=== PATIENT | female | born 1955 | race Two or more races ===

== ENCOUNTER → 2021-04-22 | Outpatient (CLI) | payer MEDICARE ==
--- NOTE | 2021-04-22 13:16 | XR ---
EXAMINATION TYPE: XR cervical spine comp DATE OF EXAM: 04/22/2021 TECHNIQUE: Frontal, lateral, oblique, and open mouth view of the cervical spine are obtained. HISTORY: M54.12 cervical radiculopathy neck pain causing pain and numbness down left arm for a few weeks. COMPARISON: None FINDINGS: The cervical spine is visualized in its entirety from C1 thru the top of T1 level, it is s traightened in alignment without evidence of acute fracture or dislocation. The pre-vertebral soft t issue appears within normal limits. The C1-C2 articulation show satisfactory lateral articulation li mits on multiple open mouth view attempts. The top of dens not well identified. Vertebral body height s are maintained. The oblique images are within normal limits. Moderate disc space narrowing with mil d to moderate anterior spurring C5-C6 level. Mild to moderate anterior spurring with osteophytic ante rior projection or fragment C6-C7 level. The oblique images show neural foraminal narrowing of bilate ral C4-C5 and C5-C6 levels due to marginal osteophytes. Overlying soft tissue shows clothing material . Visualized upper lungs are clear. IMPRESSION: As above.
== END | disposition home or self-care (01) ==
LOC: RADXRMAIN 12:10
PROVIDERS: ATTEND Family Medicine
DX: M48.02 Spinal stenosis, cervical region (principal); M25.78 Osteophyte, vertebrae; M54.12 Radiculopathy, cervical region; M99.71 Connective tissue and disc stenosis of intervertebral foramina of cervical region
CPT/HCPCS: 72050

== ENCOUNTER 2021-09-08 11:28 | Day surgery (SDC) | payer MEDICARE ==
[2021-09-03 16:11] VITALS: BMI 28.3
[~2021-09-08 11:28] MED LIST: LACTATED RINGERS 1,000 ML IV SCH
[2021-09-08 11:54] VITALS: RESP 16; TEMP 97.6
[2021-09-08] MEDS ORDERED: PROPOFOL 10 MG/ML 20 ML VIAL IV ONE (13:03)
[2021-09-08] MEDS ORDERED: LIDOCAINE 1% INJ 10MG/ML (20 ML MDV) ONE (13:03)
--- NOTE | 2021-09-08 13:12 | P.GSHP ---
History of Present Illness H&P Date: 09/08/21 Chief Complaint: GERD, Dee's esophagus, screening Patient here today for upper and lower endoscopy. Last colonoscopy greater than 10 years ago. Last EGD approximately 5 years ago. History of Dee's esophagus. Mild reflux however patient takes Prilosec daily and symptoms are fairly well controlled. No family history of GI malignancy. Past Medical History Past Medical History: GERD/Reflux Additional Past Medical History / Comment(s): BARRETTS'S ESOPHAGUS History of Any Multi-Drug Resistant Organisms: None Reported Past Surgical History: Bladder Surgery, Tonsillectomy Additional Past Surgical History / Comment(s): COLONOSCOPY/EGD Past Anesthesia/Blood Transfusion Reactions: No Reported Reaction Smoking Status: Former smoker - Past Family History Mother History Unknown: Yes Family Medical History: Unable to Obtain Additional Family Medical History / Comment(s): PT ADOPTED. FAMILY HX UNKNOWN Medications and Allergies Home Medications Medication Instructions Recorded Confirmed Type Omeprazole [PriLOSEC] 40 mg PO DAILY 09/03/21 09/03/21 History Allergies Allergy/AdvReac Type Severity Reaction Status Date / Time metronidazole [From Flagyl] Allergy Anaphylaxis Verified 09/08/21 11:55 Surgical - Exam Vital Signs Temp Pulse Resp BP Pulse Ox 97.6 F 95 16 161/68 100 09/08/21 11:52 09/08/21 11:52 09/08/21 11:52 09/08/21 11:52 09/08/21 11:52 Physical exam: General: Well-developed, well-nourished HEENT: Normocephalic, sclerae nonicteric Abdomen: Nontender, nondistended Extremities: No edema Neuro: Alert and oriented Assessment and Plan (1) GERD (gastroesophageal reflux disease) Narrative/Plan: Will proceed with upper and lower endoscopy Current Visit: Yes Status: Acute Code(s): K21.9 - GASTRO-ESOPHAGEAL REFLUX DISEASE WITHOUT ESOPHAGITIS SNOMED Code(s): 183729345
--- NOTE | 2021-09-08 13:28 | P.PCN ---
Date of Procedure: 09/08/21 Procedure(s) Performed: PREOPERATIVE DIAGNOSIS: GERD, Dee's esophagus, colon cancer screening POSTOPERATIVE DIAGNOSIS: Minimal gastritis, small hiatal hernia, short segment Dee's esophagus, small sigmoid polyp PROCEDURE: 1. EGD with biopsy 2. Colonoscopy with biopsy ANESTHESIA: [facility] [place] SURGEON: Rober Paz M.D. SPECIMENS: Antrum, Dee's ENDOSCOPIC PROCEDURE: The patient was on the endoscopy table in the left decubitus position. The Olympus gastroscope was inserted into the oropharynx and passed under direct visualization to the region of the third portion of the duodenum. From that point the scope was slowly withdrawn inspecting all surfaces carefully. There were no neoplastic inflammatory or polypoid lesions throughout the duodenum. The pylorus was widely patent. The stomach was carefully inspected. There was minimal gastritis present. A biopsy of the antrum took place to rule out H. pylori. Retroflexion revealed a small sliding hiatal hernia. The GE junction was present 1 cm above the diaphragm. The patient had an approximately 1 cm length of Dee's esophagus. No inflammatory changes were seen. Biopsies of the Dee's esophagus took place circumferentially. The remainder the esophagus appear normal. The patient was kept on the endoscopy table in the left decubitus position. The Olympus colonoscope was inserted into the anus and passed under direct visualization to the base of the cecum. The appendiceal orifice was visualized. From that point the scope was slowly withdrawn inspecting all surfaces carefully. There were no neoplastic inflammatory or polypoid lesions throughout the cecum, ascending, transverse, and descending colon. In the sigmoid colon a small polyp was seen and removed using the cold biopsy forceps. The remainder of the sigmoid and rectum appeared normal. There was no visible diverticula. Digital rectal examination was normal. The patient was taken to the recovery room in stable condition per anesthesia guidelines. RECOMMENDATIONS: Await biopsy results. Will contact patient with timing of next EGD and colonoscopy.
[2021-09-08 13:48] VITALS: BP 124/81; PULSE 76
== END 2021-09-08 14:10 | disposition home or self-care (01) ==
LOC: ORWHC2ENDO 11:28
PROVIDERS: ATTEND Surgery
DX: Z12.11 Encounter for screening for malignant neoplasm of colon (principal); D12.5 Benign neoplasm of sigmoid colon; K44.9 Diaphragmatic hernia without obstruction or gangrene; K29.70 Gastritis, unspecified, without bleeding; K31.9 Disease of stomach and duodenum, unspecified; K22.70 Barrett's esophagus without dysplasia; K21.9 Gastro-esophageal reflux disease without esophagitis; Z98.890 Other specified postprocedural states; Z87.891 Personal history of nicotine dependence; Z79.899 Other long term (current) drug therapy; Z88.1 Allergy status to other antibiotic agents
CPT/HCPCS: 88305; 45380; 43239; J2001; J2704

== ENCOUNTER 2022-01-12 18:24 | Emergency (ER) | payer MEDICARE ==
[2022-01-12 19:40] VITALS: TEMP 99.2
[2022-01-12 20:54] LABS: ALT 24 U/L (4-34); AST 28 U/L (14-36); African American GFR (CKD) >90 (>60 ml/min/1.73 sqM); Albumin 4.2 g/dL (3.5-5.0); Alkaline Phosphatase 108 U/L (38-126); Anion Gap 10 mmol/L; Blood Urea Nitrogen 15 mg/dL (7-17); Calcium 9.4 mg/dL (8.4-10.2); Carbon Dioxide 26 mmol/L (22-30); Chloride 104 mmol/L (98-107); Glucose 118 mg/dL (74-99); Non-African American GFR(CKD) >90 (>60 ml/min/1.73 sqM); Potassium 4.8 mmol/L (3.5-5.1); Sodium 140 mmol/L (137-145); Total Bilirubin 0.4 mg/dL (0.2-1.3); Total Protein 7.2 g/dL (6.3-8.2)
[2022-01-12 20:59] LABS: Prothrombin Time 11.1 sec (9.0-12.0)
[2022-01-12 21:10] LABS: Basophils # (A) 0.1 k/uL (0-0.2); Basophils % (A) 1 %; Eosinophils # (A) 0.1 k/uL (0-0.7); Eosinophils % (A) 2 %; HCT 43.9 % (34.0-46.0); HGB 14.5 gm/dL (11.4-16.0); Lymphocytes # (A) 2.5 k/uL (1.0-4.8); Lymphocytes % (A) 31 %; MCH 32.6 pg (25.0-35.0); MCV 98.8 fL (80.0-100.0); Mean Platelet Volume 7.5; Monocytes # (A) 0.4 k/uL (0-1.0); Monocytes % (A) 5 %; Neutrophils % (A) 61 %; Platelet Count 414 k/uL (150-450); RBC 4.44 m/uL (3.80-5.40); RDW 12.8 % (11.5-15.5); WBC 8.2 k/uL (3.8-10.6)
--- NOTE | 2022-01-12 22:51 | ED ---
Dizziness HPI - General Chief Complaint: Dizziness Stated Complaint: Pulse High Time Seen by Provider: 01/12/22 22:18 Source: patient Mode of arrival: ambulatory Limitations: no limitations - History of Present Illness Initial Comments: Patient is a 66-year-old female who presents to the emergency department with chief complaint of dizziness. Patient reports that she started to feel palpitations this afternoon at her home and took her pulse which was 140. She began to feel dizzy as if she was unsteady on her feet. Patient does have a history of SVT but reports she only had episodes during menopause and has not had issues since. Currently, patient denies palpitations but does feel dizzy when she turns her head. She reports that she does not feel like the room is spinning but instead feels "woozy". Patient states she is mildly nauseous. She has no other concerns at this time including fever, chills, diaphoresis, jaw or bilateral arm pain/tingling, shortness of breath, chest pain, vomiting, and diarrhea. She denies a history of coronary artery disease, hypertension, hyperlipidemia, and smoking. She denies a family history of cardiac disease although she is unsure about her father's history due to being adopted. - Related Data Home Medications Medication Instructions Recorded Confirmed Omeprazole [PriLOSEC] 40 mg PO DAILY 09/03/21 09/03/21 Previous Rx's Medication Instructions Recorded Meclizine [Antivert] 25 mg PO BID PRN 7 Days #14 tab 01/12/22 Allergies Allergy/AdvReac Type Severity Reaction Status Date / Time metronidazole [From Flagyl] Allergy Anaphylaxis Verified 01/12/22 19:40 Review of Systems ROS Statement: Those systems with pertinent positive or pertinent negative responses have been documented in the HPI. ROS Other: All systems not noted in ROS Statement are negative. Past Medical History Past Medical History: GERD/Reflux, Supraventricular Tachycardia (SVT) Additional Past Medical History / Comment(s): BARRETTS'S ESOPHAGUS, VERTIGO History of Any Multi-Drug Resistant Organisms: None Reported Past Surgical History: Bladder Surgery, Tonsillectomy Additional Past Surgical History / Comment(s): COLONOSCOPY/EGD Past Anesthesia/Blood Transfusion Reactions: No Reported Reaction Past Psychological History: No Psychological Hx Reported Smoking Status: Former smoker Past Alcohol Use History: Occasional Past Drug Use History: None Reported - Past Family History Mother History Unknown: Yes Family Medical History: Unable to Obtain Additional Family Medical History / Comment(s): PT ADOPTED. FAMILY HX UNKNOWN General Exam Limitations: no limitations General appearance: alert, in no apparent distress Head exam: Present: atraumatic, normocephalic, normal inspection ENT exam: Present: normal exam, mucous membranes moist Respiratory exam: Present: normal lung sounds bilaterally. Absent: respiratory distress, wheezes, rales, rhonchi, stridor Cardiovascular Exam: Present: regular rate, normal rhythm, normal heart sounds. Absent: systolic murmur, diastolic murmur, rubs, gallop, clicks GI/Abdominal exam: Present: soft, normal bowel sounds. Absent: distended, tende rness, guarding, rebound, rigid Neurological exam: Present: alert, oriented X3, CN II-XII intact Psychiatric exam: Present: normal affect, normal mood Skin exam: Present: warm, dry, intact, normal color. 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 Sinus rhythm, possible left atrial enlargement. ventricular rate 90. TN interval 161. QRS duration 87. QTC 388 Medical Decision Making - Medical Decision Making This is a 66-year-old female who presents with dizziness that started today. Thorough history and examination were performed. Patient is hemodynamically stable with blood pressure at 155/73. Pulse is 112. EKG reveals sinus rhythm. Laboratory studies are unremarkable. Initial troponin is within normal limits. Repeat pulse is 86. Patient has a heart score of 2 due to age. Results discussed with patient and patient's . Risk of adverse cardiac outcome in the next 6 weeks is low. Patient is comfortable going home with primary care or cardiology follow-up. She will be discharged with referral to a street sprinkler. Patient was also prescribed meclizine to trial until further evaluation. Fall risk education was provided. Patient was understanding and are agreeable to plan. Dr. Jefferson is my attending. - Lab Data Result diagrams: 01/12/22 20:28 01/12/22 20:28 Lab Results 01/12/22 01/12/22 01/12/22 Range/Units 20:28 20:28 20:28 WBC 8.2 (3.8-10.6) k/uL RBC 4.44 (3.80-5.40) m/uL Hgb 14.5 (11.4-16.0) gm/dL Hct 43.9 (34.0-46.0) % MCV 98.8 (80.0-100.0) fL MCH 32.6 (25.0-35.0) pg MCHC 33.0 (31.0-37.0) g/dL RDW 12.8 (11.5-15.5) % Plt Count 414 (150-450) k/uL MPV 7.5 Neutrophils % 61 % Lymphocytes % 31 % Monocytes % 5 % Eosinophils % 2 % Basophils % 1 % Neutrophils # 5.0 (1.3-7.7) k/uL Lymphocytes # 2.5 (1.0-4.8) k/uL Monocytes # 0.4 (0-1.0) k/uL Eosinophils # 0.1 (0-0.7) k/uL Basophils # 0.1 (0-0.2) k/uL PT 11.1 (9.0-12.0) sec INR 1.0 (<1.2) Sodium 140 (137-145) mmol/L Potassium 4.8 (3.5-5.1) mmol/L Chloride 104 (98-107) mmol/L Carbon Dioxide 26 (22-30) mmol/L Anion Gap 10 mmol/L BUN 15 (7-17) mg/dL Creatinine 0.67 (0.52-1.04) mg/dL Est GFR (CKD-EPI)AfAm >90 (>60 ml/min/1.73 sqM) Est GFR (CKD-EPI)NonAf >90 (>60 ml/min/1.73 sqM) Glucose 118 H (74-99) mg/dL Calcium 9.4 (8.4-10.2) mg/dL Total Bilirubin 0.4 (0.2-1.3) mg/dL AST 28 (14-36) U/L ALT 24 (4-34) U/L Alkaline Phosphatase 108 (38-126) U/L Troponin I (0.000-0.034) ng/mL Total Protein 7.2 (6.3-8.2) g/dL Albumin 4.2 (3.5-5.0) g/dL 01/12/22 Range/Units 20:28 WBC (3.8-10.6) k/uL RBC (3.80-5.40) m/uL Hgb (11.4-16.0) gm/dL Hct (34.0-46.0) % MCV (80.0-100.0) fL MCH (25.0-35.0) pg MCHC (31.0-37.0) g/dL RDW (11.5-15.5) % Plt Count (150-450) k/uL MPV Neutrophils % % Lymphocytes % % Monocytes % % Eosinophils % % Basophils % % Neutrophils # (1.3-7.7) k/uL Lymphocytes # (1.0-4.8) k/uL Monocytes # (0-1.0) k/uL Eosinophils # (0-0.7) k/uL Basophils # (0-0.2) k/uL PT (9.0-12.0) sec INR (<1.2) Sodium (137-145) mmol/L Potassium (3.5-5.1) mmol/L Chloride (98-107) mmol/L Carbon Dioxide (22-30) mmol/L Anion Gap mmol/L BUN (7-17) mg/dL Creatinine (0.52-1.04) mg/dL Est GFR (CKD-EPI)AfAm (>60 ml/min/1.73 sqM) Est GFR (CKD-EPI)NonAf (>60 ml/min/1.73 sqM) Glucose (74-99) mg/dL Calcium (8.4-10.2) mg/dL Total Bilirubin (0.2-1.3) mg/dL AST (14-36) U/L ALT (4-34) U/L Alkaline Phosphatase (38-126) U/L Troponin I <0.012 (0.000-0.034) ng/mL Total Protein (6.3-8.2) g/dL Albumin (3.5-5.0) g/dL Disposition Clinical Impression: Dizziness of unknown etiology, Tachycardia Disposition: HOME SELF-CARE Condition: Good Additional Instructions: You are a fall risk when you feel dizzy/unsteady. Please make sure to sit or lay down when he started to feel dizzy and use assistance if you need to stand up. Take medication as prescribed. Follow-up with primary care provider or street sprinkler for further evaluation and management of your symptoms. Return to the emergency department if you experience new, concerning, or worsening symptoms. Prescriptions: Meclizine [Antivert] 25 mg PO BID PRN 7 Days #14 tab PRN Reason: Vertigo Is patient prescribed a controlled substance at d/c from ED?: No Referrals: Marva Mark DO [Primary Care Provider] - 1-2 days Raudel Shah MD [STAFF PHYSICIAN] - 1-2 days Time of Disposition: 22:49
[2022-01-12 22:57] VITALS: PULSE 86
[2022-01-12 23:04] VITALS: BP 142/80; RESP 18
== END 2022-01-12 23:23 | disposition home or self-care (01) ==
LOC: EC 18:24
DX: K21.9 Gastro-esophageal reflux disease without esophagitis (principal); Z79.890 Hormone replacement therapy; Z87.891 Personal history of nicotine dependence; Z88.1 Allergy status to other antibiotic agents
CPT/HCPCS: 36415; 80053; 84484; 85025; 85610; 93005; 99285

== ENCOUNTER → 2022-01-20 | Outpatient (CLI) | payer MEDICARE ==
--- NOTE | 2022-01-20 11:45 | P.STRESS ---
- Stress Test Note Stress Test Results/Findings: Exam Performed: NM stress cardiolite complete Exam Date: 01/20/22 Reason for Exam: PALPITATIONS Height: 5 ft 4 in Weight: 79.379 kg Protocol: CARDIOLITE BLAIR Stage: 3 Duration of Exercise: 7:30 Resting Heart Rate: 71 Resting Blood Pressure: 130/74 Maximum Achieved Heart Rate: 169 Maximum Achieved Blood Pressure: 189.82 85% PMHR: 129 100% PMHR: 152 METS: 9.5 Technologist Comment: Stress Test Results/Findings: Exercise Cardiolite stress test Baseline heart rate 71 beats a minute, Baseline blood pressure 130 was 74 mmHg Baseline 12-lead EKG showed sinus rhythm normal TN narrow QRS normal ST segments One ventricular triplet noted prior to starting exercise Patient exercised on a Blair protocol for 7 minutes achieving a peak heart rate of 169 beats a minute The blood pressure 188/80 mmHg There was no ECG is for ischemia No ECG is for ischemia, no exercise-induced arrhythmias noted Nuclear report is separate
--- NOTE | 2022-01-20 12:22 | NM ---
EXAMINATION TYPE: NM stress cardiolite complete DATE OF EXAM: 01/20/2022 COMPARISON: NONE HISTORY: R00.2 palpitations TECHNIQUE: After the intravenous administration of 9.4 mCi Tc 99m Sestamibi - Rest images obtained 6 0 minutes post injection. The patient exercised using a BLAIR protocol and 1 minute prior to peak e xercise was injected with 25.3 mCi Tc 99m Sestamibi - Stress images obtained 28 minutes post injectio n. FINDINGS: Targeted heart rate was achieved during performance of the study. Review of stress and rest SPECT eliane ges demonstrates no distinct perfusion abnormality. Gated analysis shows normal wall motion with an estimated left ventricular ejection fraction of 69 %. IMPRESSION: No scintigraphic evidence for reversible ischemia
--- NOTE | 2022-01-21 10:07 | EST ---
Stress Test Results/Findings: Exam Performed: NM stress cardiolite complete Exam Date: 01/20/22 Reason for Exam: PALPITATIONS Height: 5 ft 4 in Weight: 79.379 kg Protocol: CARDIOLITE BLAIR Stage: 3 Duration of Exercise: 7:30 Resting Heart Rate: 71 Resting Blood Pressure: 130/74 Maximum Achieved Heart Rate: 169 Maximum Achieved Blood Pressure: 189.82 85% PMHR: 129 100% PMHR: 152 METS: 9.5 Technologist Comment: Stress Test Results/Findings: Exercise Cardiolite stress test Baseline heart rate 71 beats a minute, Baseline blood pressure 130 was 74 mmHg Baseline 12-lead EKG showed sinus rhythm normal AL narrow QRS normal ST segments One ventricular triplet noted prior to starting exercise Patient exercised on a Blair protocol for 7 minutes achieving a peak heart rate of 169 beats a minute The blood pressure 188/80 mmHg There was no ECG is for ischemia No ECG is for ischemia, no exercise-induced arrhythmias noted Nuclear report is separate MTDD
== END | disposition home or self-care (01) ==
LOC: RADNMMAIN 08:30
PROVIDERS: ATTEND Family Medicine
DX: R42 Dizziness and giddiness (principal); R68.84 Jaw pain; R11.0 Nausea; I47.1 Supraventricular tachycardia; R00.2 Palpitations
CPT/HCPCS: 93017; 78452; A9500

== ENCOUNTER → 2022-03-01 | Outpatient (CLI) | payer MEDICARE ==
--- NOTE | 2022-03-01 22:49 | MR ---
EXAMINATION TYPE: MR iac wo/w con DATE OF EXAM: 03/01/2022 COMPARISON: NONE HISTORY: Bilateral hearing loss, vertigo. TECHNIQUE: Multiplanar, multisequence images of the brain and brainstem is performed without and with IV contras t, utilizing 8 mL intravenous Gadavist . Acoustic nerve disorder protocol. FINDINGS: Diffusion weighted images demonstrate no evidence of a recent infarct or other diffusion ab normality. The ventricular system and cisternal spaces are normal in size and appearance. The brain volume is age appropriate. Occasional scattered tiny focus of T2 hyperintensity seen throughout the white matter bilaterally. Roughly 10 scattered lesions are seen. Largest measures 12 x 6 mm deep righ t parietal level axial image 19. Midline structures demonstrate normal morphology. The craniocervical junction appears within normal limits. Normal vascular flow voids are present. The visualized sinuses are clear and the globes are i ntact. No suspicious fluid signal in the mastoid air cells bilaterally. The vestibulocochlear complexes are symmetric and felt within normal limits. No suspicious enhancing cerebellopontine angle mass is noted bilaterally. IMPRESSION: No significant finding seen to account for patient's symptoms of bilateral hearing loss a nd vertigo. Mild nonspecific white matter changes favor product of chronic small vessel ischemic m[place] ge in patient of this age.
== END | disposition home or self-care (01) ==
LOC: RADMRIMAIN 14:10
PROVIDERS: ATTEND Otolaryngology
DX: H91.90 Unspecified hearing loss, unspecified ear (principal)
CPT/HCPCS: 70553; A9585

== ENCOUNTER 2024-03-15 21:38 | Observation (INO) | payer MEDICARE ==
--- NOTE | 2024-03-15 22:17 | ED ---
Recheck HPI - General Chief Complaint: Chest Pain Stated Complaint: Cardiac infusion Time Seen by Provider: 03/15/24 21:39 Source: patient, EMS, RN notes reviewed, old records reviewed Mode of arrival: EMS Limitations: no limitations - History of Present Illness Initial Comments: This is a 68-year-old female to the ER as a reevaluation patient as a transfer from an outside facility for a pericardial effusion initially presented with tachycardia and dizziness with near syncopal feelings. Patient currently feels well heart rate is improved and will be admitted for cardiology to see MD Complaint: abnormal lab (Patient had pericardial effusion on ultrasound) -: unknown Symptoms Since Prior Visit: no new symptoms Associated Symptoms: none - Related Data Home Medications Medication Instructions Recorded Confirmed Omeprazole [PriLOSEC] 40 mg PO DAILY 09/03/21 09/03/21 Previous Rx's Medication Instructions Recorded Meclizine [Antivert] 25 mg PO BID PRN 7 Days #14 tab 01/12/22 Allergies Allergy/AdvReac Type Severity Reaction Status Date / Time metronidazole [From Flagyl] Allergy Anaphylaxis Verified 03/15/24 21:45 Review of Systems ROS Statement: Those systems with pertinent positive or pertinent negative responses have been documented in the HPI. ROS Other: All systems not noted in ROS Statement are negative. Past Medical History Past Medical History: GERD/Reflux, Supraventricular Tachycardia (SVT) Additional Past Medical History / Comment(s): BARRETTS'S ESOPHAGUS, VERTIGO History of Any Multi-Drug Resistant Organisms: None Reported Past Surgical History: Bladder Surgery, Tonsillectomy Additional Past Surgical History / Comment(s): COLONOSCOPY/EGD Past Anesthesia/Blood Transfusion Reactions: No Reported Reaction Past Psychological History: No Psychological Hx Reported Smoking Status: Former smoker Past Alcohol Use History: Occasional Past Drug Use History: None Reported - Past Family History Mother History Unknown: Yes Family Medical History: Unable to Obtain Additional Family Medical History / Comment(s): PT ADOPTED. FAMILY HX UNKNOWN General Exam Limitations: no limitations General appearance: alert, in no apparent distress Head exam: Present: atraumatic, normocephalic, normal inspection Eye exam: Present: normal appearance, PERRL, EOMI. Absent: scleral icterus, conjunctival injection, periorbital swelling ENT exam: Present: normal exam, mucous membranes moist Neck exam: Present: normal inspection. Absent: tenderness, meningismus, lymphadenopathy Respiratory exam: Present: normal lung sounds bilaterally. Absent: respiratory distress, wheezes, rales, rhonchi, stridor Cardiovascular Exam: Present: regular rate, normal rhythm, normal heart sounds. Absent: systolic murmur, diastolic murmur, rubs, gallop, clicks GI/Abdominal exam: Present: soft, normal bowel sounds. Absent: distended, tenderness, guarding, rebound, rigid Extremities exam: Present: normal inspection, full ROM, normal capillary refill. Absent: tenderness, pedal edema, joint swelling, calf tenderness Back exam: Present: normal inspection Neurological exam: Present: alert, oriented X3, CN II-XII intact Psychiatric exam: Present: normal affect, normal mood Skin exam: Present: warm, dry, intact, normal color. Absent: rash Course Vital Signs 03/15/24 21:39 Temperature 98.3 F Pulse Rate 110 H Respiratory 18 Rate Blood Pressure 142/73 O2 Sat by Pulse 97 Oximetry - Reevaluation(s) Reevaluation #1: 03/15/24 22:53 Medical record is reviewed Reevaluation #2: 03/15/24 22:53 Patient symptoms are improved and she resolved here in the ER with no tachycardia or other complaints No symptoms of dizziness or near syncope Reevaluation #3: 03/15/24 22:53 Patient informed of results and questions answered Reevaluation #4: Was pt. sent in by a medical professional or institution ([facility], [employer], urgent care, hospital, or residential...) When possible be specific @ -no Did you speak to anyone other than the patient for history (EMS, parent, family, police, friend...)? What history was obtained from this source @ -no Did you review nursing and triage notes (agree or disagree)? Why? @ -agree Are old charts reviewed (outside hosp., previous admission, EMS record, old EKG, old radiological studies, urgent care reports/EKG's, residential records)? Report findings @ -yes Differential Diagnosis (chest pain, altered mental status, abdominal pain women, abdominal pain men, vaginal bleeding, weakness, fever, dyspnea, syncope, headache, dizziness, GI bleed, back pain, seizure, CVA, palpatations, mental health, musculoskeletal)? @ -prior EKG interpreted by me (3pts min.). @ -yes X-rays interpreted by me (1pt min.). @ -yes negative for acute disease CT interpreted by me (1pt min.). @ -no U/S interpreted by me (1pt. min.). @ -no What testing was considered but not performed or refused? (CT, X-rays, U/S, labs)? Why? @ -none What meds were considered but not given or refused? Why? @ -none Did you discuss the management of the patient with other professionals (professionals i.e. , PA, [employer], lab, RT, psych nurse, aids social worker, regional environmental manager, teacher, international first officer, pillowcase folder)? Give summary @ -no Was smoking cessation discussed for >3mins.? @ -no Was critical care preformed (if so, how long)? @ -no Were there social determinants of health that impacted care today? How? (Homelessness, low income, unemployed, alcoholism, drug addiction, transportation, low edu. Level, literacy, decrease access to med. care, assisted, rehab)? @ -none Was there de-escalation of care discussed even if they declined (Discuss DNR or withdrawal of care, Hospice)? DNR status @ -no What co-morbidities impacted this encounter? (DM, HTN, Smoking, COPD, CAD, Cancer, CVA, ARF, Chemo, Hep., AIDS, mental health diagnosis, sleep apnea, morbid obesity)? @ -none Was patient admitted / discharged? Hospital course, mention meds given and route, prescriptions, significant lab abnormalities, going to OR and other pertinent info. @ - Undiagnosed new problem with uncertain prognosis? @ -no Drug Therapy requiring intensive monitoring for toxicity (Heparin, Nitro, Insulin, Cardizem)? @ -no Were any procedures done? @ -no Diagnosis/symptom? @ - Acute, or Chronic, or Acute on Chronic? @ -Acute Uncomplicated (without systemic symptoms) or Complicated (systemic symptoms)? @ -Complicated Side effects of treatment? @ -no Exacerbation, Progression, or Severe Exacerbation? @ -exacerbation Poses a threat to life or bodily function? How? (Chest pain, [place], [place], pneumonia, PE, COPD, DKA, ARF, appy, cholecystitis, CVA, Diverticulitis, Homicidal, Suicidal, threat to staff... and all critical care pts) @ -yes Reevaluation #5: Differential Dizziness: Benign paroxysmal positional Vertigo, Menieres disease, otitis media, acoustic neuroma, vertebrobasilar insufficiency, cerebellar stroke, encephalitis, hypovolemic, arrhythmia, coronary artery syndrome, anemia, this is not meant to be an all-inclusive list - Consultations Consultation #1: Spoke with Dr. Nance who will admit this patient Medical Decision Making - Medical Decision Making 68 female will be admitted for pericardial effusion and cardiac evaluation, echo tomorrow - Lab Data Result diagrams: 03/15/24 22:30 - EKG Data -: EKG Interpreted by Me (EKG is sinus 92 MN 176 QRS 90 QTc 413) Disposition Clinical Impression: Pericardial effusion, Tachycardia, Dizziness Disposition: ADMITTED IP TO THIS HOSP Condition: Serious Is patient prescribed a controlled substance at d/c from ED?: No Time of Disposition: 22:10
[2024-03-15] MEDS: SODIUM CHLORIDE 0.9% 1,000 ML IV STA (22:44)
[2024-03-15 22:48] LABS: Basophils # (A) 0.1 k/uL (0-0.2); Basophils % (A) 1 %; Eosinophils # (A) 0.1 k/uL (0-0.7); Eosinophils % (A) 1 %; HCT 41.6 % (34.0-46.0); HGB 13.5 gm/dL (11.4-16.0); Lymphocytes # (A) 3.2 k/uL (1.0-4.8); Lymphocytes % (A) 33 %; MCH 31.3 pg (25.0-35.0); MCHC 32.4 g/dL (31.0-37.0); MCV 96.4 fL (80.0-100.0); Mean Platelet Volume 8.1; Monocytes # (A) 0.5 k/uL (0-1.0); Monocytes % (A) 5 %; Neutrophils # (A) 5.8 k/uL (1.3-7.7); Neutrophils % (A) 60 %; Platelet Count 291 k/uL (150-450); RBC 4.31 m/uL (3.80-5.40); RDW 12.4 % (11.5-15.5); WBC 9.7 k/uL (3.8-10.6)
[2024-03-15 22:57] LABS: ALT 31 U/L (4-34); AST 28 U/L (14-36); African American GFR (CKD) >90 (>60 ml/min/1.73 sqM); Albumin 3.8 g/dL (3.5-5.0); Alkaline Phosphatase 114 U/L (38-126); Anion Gap 6 mmol/L; Blood Urea Nitrogen 8 mg/dL (7-17); Calcium 8.7 mg/dL (8.4-10.2); Carbon Dioxide 24 mmol/L (22-30); Chloride 108 mmol/L (98-107); Glucose 106 mg/dL (74-99); Non-African American GFR(CKD) >90 (>60 ml/min/1.73 sqM); Potassium 4.1 mmol/L (3.5-5.1); Sodium 138 mmol/L (137-145); Total Bilirubin 0.6 mg/dL (0.2-1.3); Total Protein 6.6 g/dL (6.3-8.2)
[2024-03-15 23:03] LABS: Partial Thromboplastin Time 22.2 sec (22.0-30.0)
[2024-03-15 23:05] LABS: NT-Pro-B-Type Natriuretic Pept 138 pg/mL
[2024-03-16 05:22] VITALS: RESP 16
--- NOTE | 2024-03-16 10:36 | P.CRDCN ---
History of Present Illness History of present illness: HISTORY OF PRESENT ILLNESS: This is a 68-year-old female with a past medical history significant for GERD and SVT. Patient does not follow with a machine mover. We have been asked to see the patient in consultation for pericardial effusion. Patient examined at the bedside. Patient states she was driving home yesterday from a conference in [facility]. She states that she began to have palpitations and felt dizzy. She states that she thought it was SVT as she is experienced SVT greater than 10 years ago. She pulled off to the side of the road. She states that she attempted to drink some water and attempted vagal maneuvers. She reports her heart rate was in the 130s at that time. She states that she started to feel better so she got back on the road and then developed symptoms again so she stopped driving again. She states there was a hospital a few miles down the road so she went to the ER. In the emergency room, the ER physician did bedside ultrasound per the patient which revealed pericardial effusion. However there is no documentation of pericardial effusion in patient's transfer paperwork. DIAGNOSTICS: - EKG reveals sinus mechanism with no signs of acute ischemia. - Laboratory data: WBC 9.7. Hemoglobin 13.5. Platelet count 291. Sodium 138. Potassium 4.1. BUN 8. Creatinine 0.76. Magnesium 2.0. Troponin negative x 3 - Current home cardiac medications include none - Patient underwent Cardiolite stress test in January 2022 which was negative for ischemia REVIEW OF SYSTEMS: At the time of my exam: CONSTITUTIONAL: Denies fever or chills. HEENT: Denies blurred vision, vision changes, or eye pain. Denies hemoptysis CARDIOVASCULAR: Denies chest pain. Denies orthopnea. Denies PND. Denies palpitations RESPIRATORY: Denies shortness of breath. GASTROINTESTINAL: Denies abdominal pain. Denies nausea or vomiting. HEMATOLOGIC: Denies bleeding disorders. GENITOURINARY: Denies any blood in urine. SKIN: Denies pruitis. Denies rash. PHYSICAL EXAM: VITAL SIGNS: Reviewed. GENERAL: Well-developed in no acute distress. HEENT: Head is normocephalic. Pupils are equal, round. Sclerae anicteric. Mucous membranes of the mouth are moist. Neck supple. No JVD or thyromegaly LUNGS: Respirations even and unlabored. Lungs essentially clear to auscultation bilaterally. HEART: Regular rate and rhythm. S1 and S2 heard. ABDOMEN: Soft. Nondistended. Nontender. EXTREMITIES: Normal range of motion. No clubbing or cyanosis. Peripheral pulses intact. No lower extremity edema NEUROLOGIC: Awake and alert. Oriented x 3. ASSESSMENT: Palpitations Reported pericardial effusion, at outside facility History of GERD History of SVT, greater than 10 years ago Obesity: BMI 31.8 PLAN: Obtain 2D echo to assess cardiac structure and function Continue telemetry monitoring Further recommendations pending patient course Nurse practitioner note has been reviewed by physician. Signing provider agrees with the documented findings, assessment, and plan of care documented by FIELD SALES MANAGER as a scribe. Past Medical History Past Medical History: GERD/Reflux, Supraventricular Tachycardia (SVT) Additional Past Medical History / Comment(s): BARRETTS'S ESOPHAGUS, VERTIGO History of Any Multi-Drug Resistant Organisms: None Reported Past Surgical History: Bladder Surgery, Tonsillectomy Additional Past Surgical History / Comment(s): COLONOSCOPY/EGD Past Anesthesia/Blood Transfusion Reactions: No Reported Reaction Past Psychological History: No Psychological Hx Reported Smoking Status: Former smoker Past Alcohol Use History: Occasional Past Drug Use History: None Reported - Past Family History Mother History Unknown: Yes Family Medical History: Unable to Obtain Additional Family Medical History / Comment(s): PT ADOPTED. FAMILY HX UNKNOWN Medications and Allergies Home Medications Medication Instructions Recorded Confirmed Type Omeprazole [PriLOSEC] 40 mg PO DAILY 09/03/21 03/16/24 History Calcium Carbonate/Vitamin D3 1 tab PO W/LUNCH 03/16/24 03/16/24 History [Calcium 500 mg Chewable Tablet] Cholecalciferol [Vitamin D3 (25 25 mcg PO W/LUNCH 03/16/24 03/16/24 History Mcg = 1000 Iu)] Multivitamins, Thera [Multivitamin 1 tab PO W/LUNCH 03/16/24 03/16/24 History (formulary)] Allergies Allergy/AdvReac Type Severity Reaction Status Date / Time metronidazole [From Flagyl] Allergy Anaphylaxis Verified 03/16/24 07:10 Physical Exam Vitals: Vital Signs Temp Pulse Resp BP Pulse Ox 03/16/24 06:40 83 16 123/76 98 03/16/24 04:00 81 16 118/71 97 03/16/24 03:00 85 16 105/55 97 03/16/24 00:45 101 H 17 127/58 97 03/15/24 23:45 100 14 131/68 96 03/15/24 22:45 97 16 141/62 97 03/15/24 21:39 98.3 F 110 H 18 142/73 97 Intake and Output 03/15/24 03/16/24 03/16/24 22:59 06:59 14:59 Other: Weight 83.915 kg Results 03/15/24 22:30 03/15/24 22:30 Cardiac Enzymes 03/15/24 03/15/24 03/16/24 Range/Units 22:30 22:30 03:41 AST 28 (14-36) U/L Troponin I <0.012 <0.012 (0.000-0.034) ng/mL Coagulation 03/15/24 Range/Units 22:30 PT 11.0 (10.0-12.5) sec APTT 22.2 (22.0-30.0) sec CBC 03/15/24 Range/Units 22:30 WBC 9.7 (3.8-10.6) k/uL RBC 4.31 (3.80-5.40) m/uL Hgb 13.5 (11.4-16.0) gm/dL Hct 41.6 (34.0-46.0) % Plt Count 291 (150-450) k/uL Comprehensive Metabolic Panel 03/15/24 Range/Units 22:30 Sodium 138 (137-145) mmol/L Potassium 4.1 (3.5-5.1) mmol/L Chloride 108 H (98-107) mmol/L Carbon Dioxide 24 (22-30) mmol/L BUN 8 (7-17) mg/dL Creatinine 0.46 L (0.52-1.04) mg/dL Glucose 106 H (74-99) mg/dL Calcium 8.7 (8.4-10.2) mg/dL AST 28 (14-36) U/L ALT 31 (4-34) U/L Alkaline Phosphatase 114 (38-126) U/L Total Protein 6.6 (6.3-8.2) g/dL Albumin 3.8 (3.5-5.0) g/dL Intake and Output 03/15/24 03/16/24 03/16/24 22:59 06:59 14:59 Other: Weight 83.915 kg 03/15/24 22:30 03/15/24 22:30
--- NOTE | 2024-03-16 10:48 | P.HPIM ---
History of Present Illness H&P Date: 03/16/24 Chief Complaint: Pericardial effusion diagnosed at outside facility This is a 68-year-old female with past medical history significant for SVT-14 years ago during menopause, vertigo, palmar psoriasis ,gastroesophageal reflux disease, former nicotine dependence, Cardiolite stress test 01/2022 reported no scientific evidence for reversible ischemia ,and multiple other medical issues,presented to the ER for reevaluation of diagnosed pericardial effusion at [facility], ER. States she was driving home from a [employer] conference, became tachycardic reporting heart rates of 120s to 130s, shaky "like Jell-O", weak, diaphoretic, some dizziness. Denies syncope. Proceeded to pull off to the side of the road, attempted vagal maneuvers and drink some water without resolution. Follows with ENT Dr. Jc. Reports she had a deep teeth cleaning 2 weeks ago, followed by vertigo episode the very next day while at yoga which has been fluctuating on and off for the last couple weeks. Last Tuesday she felt like she had possible left parotid gland infection, completed 1 week of Augmentin as per urgent care. Reports she completed a ultrasound at [facility] ,diagnosing her with a pericardial effusion, was not evaluated by a lathe puller. Denies recent illness or viral infections. On admission heart rate 110, blood pressure 142/73, respiratory rate 18 with O2 sat 97% on room air. echo ordered. Cardiology consult in place, recommendations pending. Cu rrently vital signs stable, heart rate in the 80s ,asymptomatic, denies chest pain, palpitations or shortness of breath. Denies lightheadedness dizziness or focal deficits. Maintaining O2 sats in the high 90s on room air. Afebrile. Hematology, coagulation, chemistry unremarkable. proBNP 138. troponins negative x 3. EKG reporting sinus rhythm. Review of Systems ROS Statement: Those systems with pertinent positive or pertinent negative responses have been documented in the HPI. ROS Other: All systems not noted in ROS Statement are negative. Past Medical History Past Medical History: GERD/Reflux, Supraventricular Tachycardia (SVT) Additional Past Medical History / Comment(s): BARRETTS'S ESOPHAGUS, VERTIGO History of Any Multi-Drug Resistant Organisms: None Reported Past Surgical History: Bladder Surgery, Tonsillectomy Additional Past Surgical History / Comment(s): COLONOSCOPY/EGD Past Anesthesia/Blood Transfusion Reactions: No Reported Reaction Past Psychological History: No Psychological Hx Reported Smoking Status: Former smoker Past Alcohol Use History: Occasional Past Drug Use History: None Reported - Past Family History Mother History Unknown: Yes Family Medical History: Unable to Obtain Additional Family Medical History / Comment(s): PT ADOPTED. FAMILY HX UNKNOWN Medications and Allergies Home Medications Medication Instructions Recorded Confirmed Type Omeprazole [PriLOSEC] 40 mg PO DAILY 09/03/21 03/16/24 History Calcium Carbonate/Vitamin D3 1 tab PO W/LUNCH 03/16/24 03/16/24 History [Calcium 500 mg Chewable Tablet] Cholecalciferol [Vitamin D3 (25 25 mcg PO W/LUNCH 03/16/24 03/16/24 History Mcg = 1000 Iu)] Multivitamins, Thera [Multivitamin 1 tab PO W/LUNCH 03/16/24 03/16/24 History (formulary)] Allergies Allergy/AdvReac Type Severity Reaction Status Date / Time metronidazole [From Flagyl] Allergy Anaphylaxis Verified 03/16/24 07:10 Physical Exam Vitals: Vital Signs Temp Pulse Resp BP Pulse Ox 03/16/24 06:40 83 16 123/76 98 03/16/24 04:00 81 16 118/71 97 03/16/24 03:00 85 16 105/55 97 03/16/24 00:45 101 H 17 127/58 97 03/15/24 23:45 100 14 131/68 96 03/15/24 22:45 97 16 141/62 97 03/15/24 21:39 98.3 F 110 H 18 142/73 97 Intake and Output 03/15/24 03/16/24 03/16/24 22:59 06:59 14:59 Other: Weight 83.915 kg PHYSICAL EXAM: VITAL SIGNS: [As above] GENERAL: Well-nourished, alert and oriented x 3, sitting up in bed, no acute distress HEENT: Normocephalic, atraumatic, conjunctivae normal. eyes normal. MMM. NECK: Supple, no JVD. No thyroid enlargement. No LNs CARDIOVASCULAR: S1, S2 regular.No murmur RESPIRATION: Unlabored, equal air entry, CTA. ABDOMEN: Soft, nontender . No guarding. no masses palpable. +BS. LEGS: No edema. no swelling NERVOUS SYSTEM: Cranial N 2-12 grossly normal.No focal deficits. Strength and sensation grossly intact. Skin: Warm and dry, no rash Results CBC & Chem 7: 03/15/24 22:30 03/15/24 22:30 Labs: Abnormal Lab Results - Last 24 Hours (Table) 03/15/24 Range/Units 22:30 Chloride 108 H (98-107) mmol/L Creatinine 0.46 L (0.52-1.04) mg/dL Glucose 106 H (74-99) mg/dL Assessment and Plan Assessment: Symptomatic palpitations, reports pericardial effusion diagnosed at outside acility via ultrasound-currently not available, echo pending. History of SBT 14 years ago during menopause History of vertigo, BPV Gastroesophageal reflux disease Former nicotine dependence Morbid obesity, BMI 31.8 Plan: Continue on current medication regimen ,monitoring and symptomatic treatment. Echo pending. Cardiology consult in place, recommendations pending. Discharge planning in progress pending echo results, final DC recommendations and clearance per cardiology. The impression and plan of care has been dictated as directed. : I performed a history and examination of this patient, discussed the same with the dictator. I agree with the dictator's note ,documented as a scribe. Any additional findings or plans will be noted.
--- NOTE | 2024-03-16 12:35 | CA ---
Transthoracic Echo Report Name: Mandy Alvarado Age: 68 Gender: F : 1955 Exam Date: 03/16/2024 10:07 Exam Location: [facility] Ht (in): 64 Wt (lb): 185 Ordering Physician: Maninder Joseph DO Attending/Referring Phys: [id number], Jake Python Web Developer Sirisha Watkins RDCS Procedure CPT: Indications: pericardialeffusion Cardiac Hx: Technical Quality: Fair Contrast 1: Total Dose (mL): Contrast 2: Total Dose (mL): MEASUREMENTS (Male / Female) Normal Values 2D ECHO LV Diastolic Diameter PLAX 3.8 cm 4.2 - 5.9 / 3.9 - 5.3 cm LV Systolic Diameter PLAX 1.5 cm IVS Diastolic Thickness 1.1 cm 0.6 - 1.0 / 0.6 - 0.9 cm LVPW Diastolic Thickness 1.0 cm 0.6 - 1.0 / 0.6 - 0.9 cm LV Relative Wall Thickness 0.6 RV Internal Dim ED PLAX 2.7 cm LA Volume 52.9 cm??? 18 - 58 / 22 - 52 cm??? LA Volume Index 26.7 cm???/m??? 16 - 28 cm???/m??? M-MODE Aortic Root Diameter MM 2.2 cm LA Systolic Diameter MM 4.1 cm LA Ao Ratio MM 1.9 AV Cusp Separation MM 1.4 cm DOPPLER AV Peak Velocity 143.7 cm/s AV Peak Gradient 8.3 mmHg AV Mean Velocity 95.1 cm/s AV Mean Gradient 4.1 mmHg AV Velocity Time Integral 28.6 cm LVOT Peak Velocity 124.3 cm/s LVOT Peak Gradient 6.2 mmHg LVOT Velocity Time Integral 26.7 cm MV Area PHT 3.5 cm??? Mitral E Point Velocity 93.9 cm/s Mitral A Point Velocity 103.3 cm/s Mitral E to A Ratio 0.9 MV Deceleration Time 214.2 ms MV E' Velocity 6.7 cm/s Mitral E to MV E' Ratio 14.1 FINDINGS Left Ventricle Mildly increased left ventricular wall thickness. Left ventricular cavity size normal. Normal left ventricular systolic function with no obvious regional wall motion abnormalities. Left ventricular ejection fraction is estimated at 55-60 %. Grade 1 diastolic dysfunction. Right Ventricle Normal right ventricular size and function. Right ventricular systolic pressure within normal limits. Right Atrium Normal right atrial size. Left Atrium Normal left atrial size. Mitral Valve Structurally normal mitral valve. No evidence for mitral valve prolapse. No mitral stenosis. Mild mitral annular calcification. Trace to mild mitral regurgitation. Aortic Valve Trileaflet aortic valve. No aortic valve stenosis or regurgitation. Tricuspid Valve Structurally normal tricuspid valve. Mild tricuspid regurgitation. Pulmonic Valve Structurally normal pulmonic valve. Pericardium No pericardial effusion. Aorta Normal size aortic root and proximal ascending aorta. CONCLUSIONS Normal LV systolic function No pericardial effusion Previewed by: Dr. Raudel Shah MD (Electronically Signed) Final Date: 16 Mar 2024 12:34
[2024-03-17 08:26] VITALS: TEMP 98.3
[2024-03-17 12:36] VITALS: BP 118/71; PULSE 74; BMI 31.7
--- NOTE | 2024-03-17 19:17 | DS ---
DISCHARGE SUMMARY FINAL DIAGNOSES: 1. Palpitations. 2. Pericardial effusion ruled out. 3. History of SVT. 4. History of GERD. 5. History of Dee esophagus. DISCHARGED DISPOSITION: The patient was discharged stable and guarded prognosis. Cardiology cleared the patient for discharge. HISTORY OF PRESENT ILLNESS: This 68-year-old woman was admitted with palpitations, outside facility apparently showed a pericardial effusion, but a 2D echo was done by Cardiology showed normal ejection fraction and no pericardial effusion. Cardiology recommended the patient to be discharged. PHYSICAL EXAMINATION: VITALS: Stable. CARDIOVASCULAR: S1 and S2. ABDOMEN: Soft nervous no focal deficits. The patient also complaining of some dizziness and vertigo. The patient recommended Antivert p.r.n. otherwise can recommend to continue the home medications and follow up with Dr. Nance and Dr. Mark and Dr. Shah as recommended. MMCOSTA / RAYN: [id number] /
== END 2024-03-17 13:10 | disposition home or self-care (01) ==
LOC: EC 21:38 → 6NMEDSUR 22:16
PROVIDERS: ADMIT Family Medicine; ATTEND Family Medicine
DX: R07.89 Other chest pain (principal); R00.2 Palpitations; K21.9 Gastro-esophageal reflux disease without esophagitis; K22.70 Barrett's esophagus without dysplasia; Z87.891 Personal history of nicotine dependence; E66.01 Morbid (severe) obesity due to excess calories; Z68.31 Body mass index [BMI] 31.0-31.9, adult; I47.10 Supraventricular tachycardia, unspecified
CPT/HCPCS: 96361; 96365; 99284; 94760; 93005; 93306; 83880; 80053; 83735; 84484 ×2; 85025; 85610; 85730; G0378 ×3